=== PATIENT | female | born 1965 | race African-American/Black ===

== ENCOUNTER 2020-08-02 22:07 | Emergency (ER) | payer OTHER, MEDICAID ==
[~2020-08-02] VITALS: Ht 188 cm; Wt 129.3 kg
[2020-08-02 22:07] VITALS: BP_SYST 170
[2020-08-02] MEDS ORDERED: hydrALAZINE HCL 20 MG/ML VIAL IM ONE (22:15)
[2020-08-03 00:05] VITALS: BP_SYST 155
== END 2020-08-02 22:50 ==
LOC: SED 22:07
DX: I10 Essential (primary) hypertension (principal); R45.851 Suicidal ideations
CPT/HCPCS: 96372; 99285; J0360